=== PATIENT | female | born 1930 | race Caucasian/White ===

== ENCOUNTER 2020-10-22 09:32 | Inpatient (IN) ==
[2020-10-22 10:37] LABS: Hematocrit 34.8 % (37.0-47.0); Hemoglobin 12.6 gm/dL (12.5-16.0); Mean Cell Volume 89.5 fl (78-100); Mean Corpuscular Hemoglobin 32.4 pg (27-31); Mean Corpuscular Hgb Conc 36.2 g/dl (32-36); Mean Platelet Volume 9.9 fl (8-12.5); Neutrophil # 5.4 K/mm3 (1.3-6.0); Neutrophil % 68.5 % (42-75.0); Platelet Count 213 K/mm3 (150-450); Red Blood Count 3.89 M/mm3 (4.2-5.4); Red Cell Distribution Width 11.9 % (11.5-14.0); White Blood Count 7.8 K/mm3 (4.0-10.5)
[2020-10-22 10:41] LABS: Urine Bilirubin Negative (NEGATIVE); Urine Blood Negative /ul (NEGATIVE); Urine Ketone Negative (NEGATIVE); Urine Nitrite Negative (NEGATIVE); Urine Protein Negative (NEGATIVE); Urine Specific Gravity <=1.005 SP.GR. (1.005-1.010); Urine Urobilinogen Normal (NORMAL); Urine pH 6.5 pH (5.0-7.0)
[2020-10-22 10:50] LABS: Urine Appearance Slightly Cloudy (CLEAR); Urine Color Yellow
[2020-10-22 10:51] LABS: Urine Amorphous Sediment Few - 1+ (NONE-FEW); Urine Bacteria 2+; Urine RBC None Seen /hpf (0-5); Urine WBC 0-5 /hpf (0-5)
[2020-10-22] MEDS ORDERED: NORMAL SALINE 1,000 ML IV PRN (10:55)
[2020-10-22 10:56] LABS: ALT 19 U/L (19-67); AST 14 U/L (0-48); Albumin * 3.5 gm/dl (3.4-5.0); Alkaline Phosphatase * 72 U/L (50-170); Anion Gap 13.4 mmol/L (6.8-13.8); BUN/Creatinine Ratio 20.4 (9.0-21.6); Bilirubin, Total 1.4 mg/dL (0.0-1.1); Blood Urea Nitrogen 29 mg/dL (3-23); Ca. Corrected For Albumin 10.2 mg/dL (8.4-10.2); Calcium * 10.1 mg/dL (7.9-10.9); Chloride 84 mmol/L (97-106); Glucose * 106 mg/dL (70-110); Potassium 4.4 mmol/L (3.4-4.6); Troponin I Less than 0.017 ng/mL (0.00-0.10)
[2020-10-22 10:57] LABS: Sodium 118 mmol/L (132-142)
--- NOTE | 2020-10-22 11:04 | ERNOTE ---
Neuro HPI ER Record Date of Service: 10/22/20 Presenting Symptoms: weakness Time Seen by Provider: 10/22/20 10:18 Source: patient Exam Limitations: no limitations Immunizations: IMMUNIZATION HX Immunizations Up to Date No History of Influenza Vaccine Yes Hx Pneumococcal Vaccination More Information Required Allergies/Adverse Reactions: Allergies Allergy/AdvReac Type Severity Reaction Status Date / Time No Known Allergies Allergy Unverified 10/22/20 09:44 Home Medications: HOME MEDICATIONS Aspirin 81 mg PO DAILY 10/22/20 [Last Taken Unknown] Atenolol [Tenormin] 25 mg PO DAILY 10/22/20 [Last Taken Unknown] Bumetanide 2 mg PO DAILY 10/22/20 [Last Taken Unknown] Clopidogrel Bisulfate [Plavix] 75 mg PO DAILY 10/22/20 [Last Taken Unknown] Isosorbide Mononitrate [Imdur] 30 mg PO DAILY 10/22/20 [Last Taken Unknown] Levothyroxine Sodium [Levo-T] 25 mcg PO DAILY 10/22/20 [Last Taken Unknown] Nitroglycerin 0.4 mg SL prn 10/22/20 [Last Taken Unknown] Telmisartan [Micardis] 40 mg PO DAILY 10/22/20 [Last Taken Unknown] - History of Present Illness Narrative: 89-year-old white female who has had altered mental status for the last few days. No fevers or chills or any other constitutional signs or symptoms overall patient has been moving and walking but doing little things like dressing appropriately for getting home her daughter was etc. Onset: gradual onset Severity: moderate - Character of Deficits Additional Deficits: Present: impaired speech, decrease ability to stand, decrease ability to walk, weakness Baseline Cognition: Present: alert but disoriented to time, alert but confused Baseline Gait: Present: uses a cane/walker Associated Symptoms: Reports: altered mental status, disoriented, confused Review of Systems - Review of Systems Constitutional: Present: no symptoms reported EYE: Present: no symptoms reported ENT: Present: no symptoms reported Respiratory: Present: no symptoms reported Cardiology: Present: no symptoms reported Gastrointestinal/Abdominal: Present: no symptoms reported Genitourinary: Present: no symptoms reported Musculoskeletal: Present: no symptoms reported Skin: Present: no symptoms reported Neurological: Present: no symptoms reported Endocrine: Present: no symptoms reported Hematologic/Lymphatic: Present: no symptoms reported Psych: Present: no symptoms reported Medical History (Last Reviewed 10/22/20 @ 11:08 by Agapito Johnson DO) Afib HTN (hypertension) Hypothyroidism Surgical History: Surgical History (Last Reviewed 10/22/20 @ 11:08 by Agapito Johnson DO) H/O: hysterectomy Family History: Family History (Last Reviewed 10/22/20 @ 11:08 by Agapito Johnson DO) Other No pertinent family history Social History: (Last Reviewed 10/22/20 @ 11:08 by Agapito Johnson DO) Tobacco: Smoking Status: Never smoker Alcohol: alcohol intake: never Substance Use: substance use type: does not use Physical Exam - Physical Exam General Appearance: Present: no apparent distress Head Exam: Present: normal inspection Eye Exam: Normal inspection: bilateral, PERRL: bilateral, EOMI: bilateral Ears, Nose, Throat: Present: normal ENT inspection Neck: Present: normal inspection Respiratory: Present: no respiratory distress Cardiovascular/Chest: Present: regular rate, rhythm Gastrointestinal/Abdominal: Present: normal bowel sounds Back Exam: Present: normal inspection Extremity Exam: Present: normal inspection Neurological Exam: Present: alert Skin Exam: Present: normal color Progress - Results and Orders Patient's Lab Results:: I have reviewed the patient's lab results. - Vital Signs Patient's Vital Signs:: I have reviewed the patient's vital signs. Vital Signs: Vital Signs 10/22/20 09:32 Temperature 35.6 C L Pulse Rate 52 L Respiratory Rate 16 Blood Pressure 167/57 H O2 Sat by Pulse Oximetry 99 - EKG EKG #1 EKG: atrial fibrillation - X-Ray X-Ray #1 X-Ray: cm - CT/Ultrasound CT/Ultrasound Narrative: no acute changes - Progress/Reassessment Chief Complaint: Altered Mental Status Progress:: Improved Departure Clinical Impression: Hyponatremia syndrome - Departure Disposition: Still a patient Condition: Good
[2020-10-22] MEDS ORDERED: NITROGLYCERIN 0.4 MG/TAB BTL SL SCH (12:45)
[2020-10-22] MEDS ORDERED: NORMAL SALINE 1,000 ML IV ONE (19:29)
--- NOTE | 2020-10-22 19:35 | HP ---
Chief Complaint - Chief Complaint Date of Service: 10/22/20 Time of Service: 19:35 Chief Complaint: ams History of Present Illness: 89-year-old female with history of hypothyroidism, high blood pressure, and A. fib currently rate controlled with atenolol (slightly bradycardic) and on aspirin and Plavix was admitted to the hospital due to 1 week of worsening mentation. Daughter states that for the last couple of weeks patient has slowly been becoming more confused until recently where she will was only responding to questions with I do not know. When she is brought into the ER she was found to be hyponatremic at 118 but otherwise the rest of her lab work was fairly unremarkable. Her urine is negative for infection and she was Covid negative. No drug use. Head CT scan showed age-related changes but no acute intracranial pathology. She is admitted due to her hyponatremia and altered mental status. He said to be confused she had no other concerns and daughter had no other concerns. When examined, patient had received 1 L of normal saline. According to her daughter it is really improved her mentation. Daughter states that she has not had any salt on her food in the last couple of months and she is also on Bumex. She states that Bumex for blood pressure control but has no history of congestive heart failure. Her BNP was elevated at 4728 as she does not appear to be fluid overloaded and her chest x-ray did not show vascular congestion. She she was borderline, with cardiomegaly. Otherwise normal chest x-ray. She denies shortness of breath, cough, swelling her legs. Medical History (Last Reviewed 10/22/20 @ 11:08 by Agapito Johnson DO) Afib HTN (hypertension) Hypothyroidism Surgical History: Surgical History (Last Reviewed 10/22/20 @ 11:08 by Agapito Johnson DO) H/O: hysterectomy Family History: Family History (Last Reviewed 10/22/20 @ 11:08 by Agapito Johnson DO) Other No pertinent family history Social History: (Last Reviewed 10/22/20 @ 11:08 by Agapito Johnson DO) Tobacco: Smoking Status: Never smoker Alcohol: alcohol intake: never Substance Use: substance use type: does not use Review Of Systems (GEN) - Review of Systems Generalized/Overall Review: Absent: Weakness - Did feel slightly unsteady on her legs, Chills, Fever EENTM: Present: No Symptoms Reported Respiratory: Present: No Symptoms Reported Abdominal: Present: No Symptoms Reported Genitourinary: Present: No Symptoms Reported Musculoskeletal: Present: No Symptoms Reported Neurological: Present: Other - Confused Skin: Present: No Symptoms Reported Endocrine: Present: No Symptoms Reported Immunizations: IMMUNIZATION HX Immunizations Up to Date No History of Influenza Vaccine Yes Hx Pneumococcal Vaccination More Information Required Allergies/Adverse Reactions: Allergies Allergy/AdvReac Type Severity Reaction Status Date / Time No Known Allergies Allergy Unverified 10/22/20 09:44 Home Medications: HOME MEDICATIONS Aspirin 81 mg PO DAILY 10/22/20 [Last Taken Unknown] Atenolol [Tenormin] 25 mg PO DAILY 10/22/20 [Last Taken Unknown] Bumetanide 2 mg PO DAILY 10/22/20 [Last Taken Unknown] Clopidogrel Bisulfate [Plavix] 75 mg PO DAILY 10/22/20 [Last Taken Unknown] Isosorbide Mononitrate [Imdur] 30 mg PO DAILY 10/22/20 [Last Taken Unknown] Levothyroxine Sodium [Levo-T] 25 mcg PO DAILY 10/22/20 [Last Taken Unknown] Nitroglycerin 0.4 mg SL prn 10/22/20 [Last Taken Unknown] Telmisartan [Micardis] 40 mg PO DAILY 10/22/20 [Last Taken Unknown] Exam - Exam Vital Signs: Vital Signs - Last Taken Temp 36.6 C 10/22/20 18:02 Pulse 52 L 10/22/20 18:02 Resp 24 H 10/22/20 18:02 BP 145/62 10/22/20 18:02 Pulse Ox 99 10/22/20 18:02 Constitutional: Present: Alert, Oriented x3, Elderly ENT Exam: Present: hearing grossly normal Eye Exam: bilateral eye: normal inspection, EOMI Neck: Present: non-tender, supple Respiratory: Present: lungs clear, normal breath sounds Cardiovascular/Chest: Present: no murmur, irregularly irregular Abdomen: Present: soft, nontender, nondistended Extremity: Present: non-tender. Absent: lower extremity edema Skin Exam: Present: normal color, warm/dry Appearance: Present: appropriate appearance, appropriate insight, neat Eye contact: Present: cooperative, good eye contact Thoughts: Present: normal thought pattern, normal mood /affect Diagnostic Studies: Abnormal Lab Results 10/22/20 10/22/20 10/22/20 Range/Units 10:00 10:30 10:30 RBC 3.89 L (4.2-5.4) M/mm3 Hct 34.8 L (37.0-47.0) % MCH 32.4 H (27-31) pg MCHC 36.2 H (32-36) g/dl Immature Gran % (Auto) 0.50 H (0.001-0.429) % Immature Gran # (Auto) 0.04 H (0.000-0.0310) K/mm3 Monocytes % 10.3 H (0.0-9) % Sodium 118 L* (132-142) mmol/L Plasma Sodium 118 L* (130-142) mmol/L Chloride 84 L (97-106) mmol/L BUN 29 H (3-23) mg/dL Creatinine 1.42 H (0.4-1.4) mg/dL Est GFR (Non-Af Amer) 37 L (60-130) mL/min Total Bilirubin 1.4 H (0.0-1.1) mg/dL B-Natriuretic Peptide (5-550) pg/mL Urine Bacteria 2+ H (NONE) 10/22/20 Range/Units 10:30 RBC (4.2-5.4) M/mm3 Hct (37.0-47.0) % MCH (27-31) pg MCHC (32-36) g/dl Immature Gran % (Auto) (0.001-0.429) % Immature Gran # (Auto) (0.000-0.0310) K/mm3 Monocytes % (0.0-9) % Sodium (132-142) mmol/L Plasma Sodium (130-142) mmol/L Chloride (97-106) mmol/L BUN (3-23) mg/dL Creatinine (0.4-1.4) mg/dL Est GFR (Non-Af Amer) (60-130) mL/min Total Bilirubin (0.0-1.1) mg/dL B-Natriuretic Peptide 4728 H (5-550) pg/mL Urine Bacteria (NONE) Laboratory Results WBC 7.8 K/mm3 (4.0-10.5) 10/22/20 10:30 RBC 3.89 M/mm3 (4.2-5.4) L 03/12/21 10:30 Hgb 12.6 gm/dL (12.5-16.0) 10/22/20 10:30 Hct 34.8 % (37.0-47.0) L 10/22/20 10:30 MCV 89.5 fl (78-100) 10/22/20 10:30 MCH 32.4 pg (27-31) H 10/22/20 10:30 MCHC 36.2 g/dl (32-36) H 10/22/20 10:30 RDW 11.9 % (11.5-14.0) 10/22/20 10:30 Plt Count 213 K/mm3 (150-450) 10/22/20 10:30 MPV 9.9 fl (8-12.5) 10/22/20 10:30 Immature Gran % (Auto) 0.50 % (0.001-0.429) H 10/22/20 10:30 Immature Gran # (Auto) 0.04 K/mm3 (0.000-0.0310) H 10/22/20 10:30 Neutrophils % 68.5 % (42-75.0) 10/22/20 10:30 Lymphocytes % 20.1 % (20-51) 10/22/20 10:30 Monocytes % 10.3 % (0.0-9) H 10/22/20 10:30 Eosinophils % 0.3 % (0.0-3.0) 10/22/20 10:30 Basophils % 0.3 % (0.0-1.0) 10/22/20 10:30 Nucleated RBC % 0.0 k/mm3 (0-1) 10/22/20 10:30 Neutrophils # 5.4 K/mm3 (1.3-6.0) 10/22/20 10:30 Lymphocytes # 1.57 k/mm3 (1.5-3.5) 10/22/20 10:30 Monocytes # 0.8 k/mm3 (0.0-1.0) 10/22/20 10:30 Eosinophils # 0.0 k/mm3 (0.0-0.7) 10/22/20 10:30 Absolute Basophils 0.0 k/mm3 (0.0-0.1) 10/22/20 10:30 Sodium 118 mmol/L (132-142) L* 10/22/20 10:30 Plasma Sodium 118 mmol/L (130-142) L* 10/22/20 10:30 Potassium 4.4 mmol/L (3.4-4.6) 10/22/20 10:30 Chloride 84 mmol/L (97-106) L 10/22/20 10:30 Carbon Dioxide 25.0 mmol/L (24-32.6) 10/22/20 10:30 Anion Gap 13.4 mmol/L (6.8-13.8) 10/22/20 10:30 BUN 29 mg/dL (3-23) H 10/22/20 10:30 Creatinine 1.42 mg/dL (0.4-1.4) H 10/22/20 10:30 Est GFR (Non-Af Amer) 37 mL/min (60-130) L 10/22/20 10:30 BUN/Creatinine Ratio 20.4 (9.0-21.6) 10/22/20 10:30 Random Glucose 106 mg/dL (70-110) 10/22/20 10:30 Calcium 10.1 mg/dL (7.9-10.9) 10/22/20 10:30 Calcium Adj for Albumin 10.2 mg/dL (8.4-10.2) 10/22/20 10:30 Total Bilirubin 1.4 mg/dL (0.0-1.1) H 10/22/20 10:30 AST 14 U/L (0-48) 10/22/20 10:30 ALT 19 U/L (19-67) 10/22/20 10:30 Alkaline Phosphatase 72 U/L (50-170) 10/22/20 10:30 Troponin I Less than 0.017 ng/mL (0.00-0.10) 10/22/20 10:30 B-Natriuretic Peptide 4728 pg/mL (5-550) H 10/22/20 10:30 Total Protein 7.0 gm/dL (6.2-8.2) 10/22/20 10:30 Albumin 3.5 gm/dl (3.4-5.0) 10/22/20 10:30 Urine Color Yellow 10/22/20 10:00 Urine Appearance Slightly cloudy (CLEAR) 10/22/20 10:00 Urine pH 6.5 pH (5.0-7.0) 10/22/20 10:00 Ur Specific [place] <=1.005 SP.GR. (1.005-1.010) 10/22/20 10:00 Urine Protein Negative mg/dL (NEGATIVE) 10/22/20 10:00 Urine Glucose (UA) Negative mg/dL (NEGATIVE) 10/22/20 10:00 Urine Ketones Negative mg/dL (NEGATIVE) 10/22/20 10:00 Urine Blood Negative /ul (NEGATIVE) 10/22/20 10:00 Urine Nitrate Negative (NEGATIVE) 10/22/20 10:00 Urine Bilirubin Negative mg/dl (NEGATIVE) 10/22/20 10:00 Urine Urobilinogen Normal EU/dl (NORMAL) 10/22/20 10:00 Ur Leukocyte Esterase Negative /ul (NEGATIVE) 10/22/20 10:00 Urine RBC None seen /hpf (0-5) 10/22/20 10:00 Urine WBC 0-5 /hpf (0-5) 10/22/20 10:00 Ur Epithelial Cells 0-5 /hpf (0-5) 10/22/20 10:00 Amorphous Sediment Few - 1+ (NONE-FEW) 10/22/20 10:00 Urine Bacteria 2+ (NONE) H 10/22/20 10:00 Urine Culture Comments No culture indicated 10/22/20 10:00 Ethyl Alcohol Less than 3.0 mg/dL (0.0-10.0) 10/22/20 10:30 SARS-CoV-2 (PCR) Not detected (NotDetected) 10/22/20 10:57 Assessment/Plan - Narrative Narrative: Patient admitted as inpatient due to hyponatremia syndrome for sodium of 118. She did receive 1 bag of normal saline in the ER that was bolused. Repeat lites this evening. We will also repeat electrolytes in the morning tomorrow. We will continue normal saline at 75 mL/h x 1 L. We will slowly correct her sodium though this appears to more an acute issue so correcting it a little quicker should not be an issue. Patient looks much better this evening according to her daughter and is alert and oriented and close to her baseline mentation carter. She feels a little bit slow with her thought process but otherwise is talking well and answering questions appropriately. Daughter states that she is much better than she is in weeks. We will hold her Bumex for the time being and likely adjust her other blood pressure medications as needed to get better control. She is only on this for some lower extremity swelling that happens in her legs at times (not swollen today)) blood pressure. I think you better job control her blood pressure with other medicines which I think we have much better for her overall health you as hyponatremia can be very dangerous and cause significant cognitive deficits as we have seen with her. Restarted her other home medications except for atenolol which we will hold at this time due to her bradycardia. She is on aspirin and clopidogrel for DVT prevention secondary to her A. fib which I think is all she will need at this point. She is 89 years old and I think the risk of being bradycardic and having hypotension and orthostatic responses due to this is worse than her having a elevated heart rate though we will address this if her heart rate is outside the normal limits. We will also add hydralazine IV to be given as needed until we know how her blood pressure will respond to having the Bumex stopped as well as been off the atenolol. 10 mg every 4 hours as needed for systolic pressure greater than 160. Restarted her on a regular diet. SCDs for DVT prophylaxis ordered. Nurse to call questions or concerns. Will repeat BMP in the morning to monitor sodium. Overall the patient appears to be doing well likely she will be here for a day or 2 depending on how she corrects. We will also monitor her fluid status and make sure that she is not becoming fluid overloaded though her daughter states that she has no history of CHF and has never been treated for this. Her kidney function is appropriate. - Assessment/Plan (1) Hypertension Problem: Acute (2) A-fib Problem: Acute (3) Hypothyroidism Problem: Acute (4) Hyponatremia syndrome Problem: Acute (5) Elevated brain natriuretic peptide (BNP) level Problem: Acute
[2020-10-22 19:54] LABS: Anion Gap 11.4 mmol/L (6.8-13.8); Carbon Dioxide 27.4 mmol/L (24-32.6); Potassium 4.8 mmol/L (3.4-4.6)
[2020-10-23] MEDS: LEVOTHYROXINE SODIUM 25 MCG TABLET PO SCH (07:39)
[2020-10-23 07:52] LABS: Anion Gap 11.8 mmol/L (6.8-13.8); Calcium * 9.7 mg/dL (7.9-10.9); Carbon Dioxide 25.6 mmol/L (24-32.6); Estimated Creat Clear 24.4; Potassium 4.4 mmol/L (3.4-4.6)
[2020-10-23] MEDS ORDERED: hydrALAZINE HCL 20 MG/ML VIAL IV PRN (07:57)
[2020-10-23] MEDS: LOSARTAN POTASSIUM 50 MG TABLET PO SCH (08:12)
[2020-10-23] MEDS: ASPIRIN 81 MG TAB.CHEW PO SCH (08:13)
[2020-10-23] MEDS: ISOSORBIDE MONONITRATE 30 MG TAB.SR.24H PO SCH (08:13)
[2020-10-23] MEDS: CLOPIDOGREL BISULFATE 75 MG TABLET PO SCH (08:13)
[2020-10-23] MEDS ORDERED: NITROGLYCERIN 0.4 MG/TAB BTL SL PRN (08:28)
[2020-10-23] MEDS ORDERED: ATENOLOL 25 MG TABLET PO SCH (09:00)
[2020-10-23] MEDS ORDERED: LOSARTAN POTASSIUM 50 MG TABLET PO SCH (09:00)
--- NOTE | 2020-10-23 09:49 | PN ---
Subjective - Date and Time Seen Date: 10/23/20 Time: 09:45 Subjective Narrative: Patient is very pleasant this morning, very comfortable. No concerns or acute events overnight. Blood pressure is mildly elevated though. Sodium did increase from 119 which was rechecked last night to 126 morning. Patient's heart rate still low but she was given atenolol yesterday and so it to see how she responds to it having out of her system today. Otherwise she has no concerns and feels well. She denies shortness of breath or cough or confusion. Objective - Review of Systems Generalized/Overall Review: Denies: Weakness - Gait unsteadiness EENTM: Reports: No Symptoms Reported Respiratory: Reports: No Symptoms Reported Cardiac: Reports: No Symptoms Reported Abdominal: Denies: Nausea, Vomiting Genitourinary Symptoms: Reports: No Symptoms Reported Musculoskeletal Complaints: Reports: No Symptoms Reported Neurological: Reports: No Symptoms Reported Skin: Reports: No Symptoms Reported Endocrine: Reports: No Symptoms Reported - Vitals Vitals: Last Vital Signs Temp 36.1 C 10/23/20 06:47 Pulse 50 L 10/23/20 09:00 Resp 18 10/23/20 06:47 BP 152/56 H 10/23/20 09:00 Pulse Ox 100 10/23/20 06:47 - Abnormal Lab Findings Abnormal Lab Findings: Abnormal Lab Results 10/22/20 10/22/20 10/22/20 Range/Units 10:00 10:30 10:30 RBC 3.89 L (4.2-5.4) M/mm3 Hct 34.8 L (37.0-47.0) % MCH 32.4 H (27-31) pg MCHC 36.2 H (32-36) g/dl Immature Gran % (Auto) 0.50 H (0.001-0.429) % Immature Gran # (Auto) 0.04 H (0.000-0.0310) K/mm3 Monocytes % 10.3 H (0.0-9) % Sodium 118 L* (132-142) mmol/L Plasma Sodium 118 L* (130-142) mmol/L Potassium (3.4-4.6) mmol/L Chloride 84 L (97-106) mmol/L BUN 29 H (3-23) mg/dL Creatinine 1.42 H (0.4-1.4) mg/dL Est GFR (Non-Af Amer) 37 L (60-130) mL/min Total Bilirubin 1.4 H (0.0-1.1) mg/dL B-Natriuretic Peptide (5-550) pg/mL Urine Bacteria 2+ H (NONE) 10/22/20 10/22/20 10/23/20 Range/Units 10:30 19:43 07:28 RBC (4.2-5.4) M/mm3 Hct (37.0-47.0) % MCH (27-31) pg MCHC (32-36) g/dl Immature Gran % (Auto) (0.001-0.429) % Immature Gran # (Auto) (0.000-0.0310) K/mm3 Monocytes % (0.0-9) % Sodium 119 L 126 L (132-142) mmol/L Plasma Sodium 126 L (130-142) mmol/L Potassium 4.8 H (3.4-4.6) mmol/L Chloride 85 L 93 L (97-106) mmol/L BUN 24 H (3-23) mg/dL Creatinine (0.4-1.4) mg/dL Est GFR (Non-Af Amer) 43 L (60-130) mL/min Total Bilirubin (0.0-1.1) mg/dL B-Natriuretic Peptide 4728 H (5-550) pg/mL Urine Bacteria (NONE) - Exam Constitutional: Present: Alert, Oriented x3, Cooperative, Elderly ENT Exam: Present: hearing grossly normal Respiratory: Present: lungs clear, normal breath sounds Cardiovascular/Chest: Present: no murmur, irregularly irregular Abdomen: Present: soft, nontender, nondistended Extremity: Present: normal range of motion, non-tender, no pedal edema Skin Exam: Present: normal color, warm/dry Neurologic: Present: no motor/sensory deficits, normal mood/affect Appearance: Present: appropriate appearance, appropriate insight Eye contact: Present: cooperative, good eye contact Thoughts: Present: normal thought pattern, normal mood /affect Assessment/Plan Plan Narrative: Significant improvement with the patient from time of admission to now. Sodium is up to 126 from 118. She is being corrected very slowly with normal saline so her body is mostly doing this, likely due to holding the Bumex as well. We will continue to monitor her sodium and likely discharge home tomorrow if there are no acute changes in her cognition or her overall clinical picture. She looks much better and feels much better. Increase her losartan from 50 mg 200 mg today due to her elevated pressures. Diltiazem ordered and to be used for systolics greater than 160. Holding her atenolol due to her low heart rate, hopefully her heart rate increases later today after that medicine is out of her system. Repeat BMP tomorrow. Continue current treatment plan otherwise. We will adjust her hypertension treatment as needed. Continue as needed hydralazine if needed. SCDs for DVT prophylaxis though she is on Plavix and aspirin. Overall though she feels well and has no concerns. Nurse to call with any questions or concerns. - Problems/Diagnosis (1) Hyponatremia syndrome Problem: Acute (2) A-fib Problem: Acute (3) Hypertension Problem: Acute (4) Hypothyroidism Problem: Acute (5) Elevated brain natriuretic peptide (BNP) level Problem: Acute
[2020-10-24] MEDS: LEVOTHYROXINE SODIUM 25 MCG TABLET PO SCH (06:55)
[2020-10-24 07:04] LABS: Anion Gap 13.7 mmol/L (6.8-13.8); BUN/Creatinine Ratio 19.1 (9.0-21.6); Calcium * 9.7 mg/dL (7.9-10.9); Carbon Dioxide 22.7 mmol/L (24-32.6); Estimated Creat Clear 22.6; Potassium 4.4 mmol/L (3.4-4.6)
[2020-10-24] MEDS: ASPIRIN 81 MG TAB.CHEW PO SCH (08:25)
[2020-10-24] MEDS: LOSARTAN POTASSIUM 50 MG TABLET PO SCH (08:25)
[2020-10-24] MEDS: ISOSORBIDE MONONITRATE 30 MG TAB.SR.24H PO SCH (08:26)
[2020-10-24] MEDS: CLOPIDOGREL BISULFATE 75 MG TABLET PO SCH (08:26)
--- NOTE | 2020-10-24 13:22 | DS ---
(1) Hyponatremia syndrome Problem: Acute (2) A-fib Problem: Acute (3) Hypertension Problem: Acute (4) Hypothyroidism Problem: Acute (5) Elevated brain natriuretic peptide (BNP) level Problem: Acute Date of Discharge:: 10/24/20 Hospital Course: 89-year-old female who presented to the hospital for acute delirium that worsened over the last 2 weeks was found to have a sodium of 118 upon admission. Patient was started on normal saline and slowly hydrated. Her diuretic was held and her sodium responded well. Upon discharge is back up to 131 and she was feeling much better. No mentation issues had completely resolved and she is ready be discharged. She had no headache or chest pain. She has no history of congestive heart failure but she did have a mildly elevated BNP here. We will work this up in the outpatient setting as she will need an echocardiogram to evaluate her cardiac function. Her vital signs been stable, though her heart rate was bradycardic on the atenolol. This was held and her heart rate returned to the mid 60s. She will be discharged home with this medication on hold until she can speak with her slurry blender or follow-up with her PCP. But she felt better with her heart rate being up in the 60s and sat down and lower 50s. Also holding her diuretic for the time being. She can follow-up with me in the next week if needed for repeat blood work and I can also start the process of evaluating her heart. She also can follow-up with her PCP in [place] if she wants to do that. She will need repeat electrolyte panel at her next follow-up visit. Holding her atenolol and her diuretic will be the only changes to her medications made at this visit. We will discuss this with her daughter prior to her leaving but this was discussed in detail with the patient who is in agreement with it. She will be discharged home on a heart healthy diet and advised to monitor her fluid status. If she feels she is gaining weight quickly or develop shortness of breath or cough then she will need to take her diuretic as needed. Again this will be discussed prior to her being discharged. Greater than 1 hour time spent with patient and her daughter, working on discharge orders, and completing discharge instructions. Procedures Performed: none Results and Findings: Lab Pending Results 10/22/20 10:00: Urine Color Yellow, Urine Appearance Slightly cloudy, Urine pH 6.5, Ur Specific [place] <=1.005, Urine Protein Negative, Urine Glucose (UA) Negative, Urine Ketones Negative, Urine Blood Negative, Urine Nitrate Negative, Urine Bilirubin Negative, Urine Urobilinogen Normal, Ur Leukocyte Esterase Negative, Urine RBC None seen, Urine WBC 0-5, Ur Epithelial Cells 0-5, Amorphous Sediment Few - 1+, Urine Bacteria 2+ H, Urine Culture Comments No culture indicated 10/22/20 10:30: WBC 7.8, RBC 3.89 L, Hgb 12.6, Hct 34.8 L, MCV 89.5, MCH 32.4 H, MCHC 36.2 H, RDW 11.9, Plt Count 213, MPV 9.9, Immature Gran % (Auto) 0.50 H, Immature Gran # (Auto) 0.04 H, Neutrophils % 68.5, Lymphocytes % 20.1, Monocytes % 10.3 H, Eosinophils % 0.3, Basophils % 0.3, Nucleated RBC % 0.0, Neutrophils # 5.4, Lymphocytes # 1.57, Monocytes # 0.8, Eosinophils # 0.0, Absolute Basophils 0.0 10/22/20 10:30: Sodium 118 L*, Plasma Sodium 118 L*, Potassium 4.4, Chloride 84 L, Carbon Dioxide 25.0, Anion Gap 13.4, BUN 29 H, Creatinine 1.42 H, Est GFR (Non-Af Amer) 37 L, BUN/Creatinine Ratio 20.4, Random Glucose 106, Calcium 10.1, Calcium Adj for Albumin 10.2, Total Bilirubin 1.4 H, AST 14, ALT 19, Alkaline Phosphatase 72, Troponin I Less than 0.017, Total Protein 7.0, Albumin 3.5, Et hyl Alcohol Less than 3.0 10/22/20 10:30: B-Natriuretic Peptide 4728 H 10/22/20 10:57: SARS-CoV-2 (PCR) Not detected 10/22/20 19:43: Sodium 119 L, Potassium 4.8 H, Chloride 85 L, Carbon Dioxide 27.4, Anion Gap 11.4 10/23/20 07:28: Sodium 126 L, Plasma Sodium 126 L, Potassium 4.4, Chloride 93 L, Carbon Dioxide 25.6, Anion Gap 11.8, BUN 24 H, Creatinine 1.26, Est GFR (Non-Af Amer) 43 L, BUN/Creatinine Ratio 19.0, Random Glucose 86, Calcium 9.7 10/24/20 06:23: Sodium 131 L, Plasma Sodium 131, Potassium 4.4, Chloride 99, Carbon Dioxide 22.7 L, Anion Gap 13.7, BUN 26 H, Creatinine 1.36, Est GFR (Non- Af Amer) 39 L, BUN/Creatinine Ratio 19.1, Random Glucose 84, Calcium 9.7 Discharge Location: Home Disposition: Home self-care Condition: Good Discharge Activity: Activity as tolerated Discharge Diet: Low salt - Monitor fluid intake, keep it around 2000 cc free fluid per day Referrals: Shay Pardo DO [Staff Physician] - One Week Additional Patient Instructions (free text): [facility] will call you on Sunday with follow up appointment. Complete Home Medications List: Complete Home Medication List: Aspirin 81 mg PO DAILY 10/22/20 Clopidogrel Bisulfate [Plavix] 75 mg PO DAILY 10/22/20 Isosorbide Mononitrate [Imdur] 30 mg PO DAILY 10/22/20 Levothyroxine Sodium [Levo-T] 25 mcg PO DAILY 10/22/20 Nitroglycerin 0.4 mg SL prn 10/22/20 Telmisartan [Micardis] 40 mg PO DAILY 10/22/20 Forms: Patient Portal Registration
[2020-10-24 14:07] VITALS: BP 154/57
== END 2020-10-24 14:10 | disposition home or self-care (01) | DRG 641 ==
LOC: ER 09:32 → MS 12:05
PROVIDERS: ADMIT Family Medicine; ATTEND Family Medicine
DX: I10 Essential (primary) hypertension; R00.1 Bradycardia, unspecified; E87.1 Hypo-osmolality and hyponatremia; E03.9 Hypothyroidism, unspecified; I48.91 Unspecified atrial fibrillation

== ENCOUNTER 2021-01-08 07:57 | Inpatient (IN) ==
[2021-01-08] MEDS ORDERED: ASPIRIN 81 MG TAB.CHEW PO ONE (08:07)
--- NOTE | 2021-01-08 08:07 | ERNOTE ---
Chest Pain/Cardiac HPI Date of Service: 01/08/21 Chief Complaint: Chest Pain Time Seen by Provider: 01/08/21 08:05 Source: patient Exam Limitations: no limitations Immunizations: IMMUNIZATION HX Immunizations Up to Date Yes History of Influenza Vaccine Yes Hx Pneumococcal Vaccination Yes Allergies/Adverse Reactions: Allergies No Known Allergies Allergy (Verified 12/01/20 13:06) Home Medications: HOME MEDICATIONS Aspirin 325 mg PO DAILY 10/22/20 [Last Taken Unknown] compress.stocking,knee,reg,med See Rx Instructions .ROUTE .MEDSUPPLY #2 ea 11/08/20 [Last Taken Unknown] escitalopram oxalate 10 mg tablet 10 mg PO DAILY #30 tab 11/10/20 [Last Taken Unknown] isosorbide mononitrate 30 mg tablet,extended release 24 hr 30 mg PO DAILY #30 tab 11/10/20 [Last Taken Unknown] levothyroxine 25 mcg tablet 25 mcg PO DAILY #30 tab 11/10/20 [Last Taken Unknown] telmisartan 40 mg tablet 40 mg PO DAILY #30 tab 11/10/20 [Last Taken Unknown] clopidogrel 75 mg tablet 75 mg PO DAILY #30 tab 11/11/20 [Last Taken Unknown] Acetaminophen [Tylenol] 650 mg PO Q6H PRN 11/15/20 [Last Taken Unknown] memantine 14 mg capsule sprinkle,extended release 24hr 7 mg PO DAILY #30 ea 11/25/20 [Last Taken Unknown] furosemide 20 mg tablet 20 mg PO DAILY PRN #90 tab 11/30/20 [Last Taken Unknown] Zinc Gluconate [Zinc] 220 mg PO DAILY 01/08/21 [Last Taken Unknown] Narrative: Pt is having chest pain this morning. No fever chills coughing etc. Date (Duration): 01/08/21 Time (Timing): 08:09 Timing: constant Severity/Quality: mild, pressure Location: substernal Chest Pain Radiation: no radiation Activities at Onset: none Modifying Factors - Worsens: Present: other Nitro Today/Relief: no nitro taken today Aspirin Treatment Today: no aspirin today Associated Symptoms: Present: shortness of breath Prior Chest Pain/Cardiac Workup: Reports: prior chest pain Review of Systems - Review of Systems Constitutional: Present: no symptoms reported EYE: Present: no symptoms reported ENT: Present: no symptoms reported Respiratory: Present: no symptoms reported Cardiology: Present: chest pain Gastrointestinal/Abdominal: Present: no symptoms reported Genitourinary: Present: no symptoms reported Musculoskeletal: Present: no symptoms reported Skin: Present: no symptoms reported Neurological: Present: no symptoms reported Endocrine: Present: no symptoms reported Hematologic/Lymphatic: Present: no symptoms reported Psych: Present: no symptoms reported Medical History (Last Reviewed 01/08/21 @ 08:10 by Agapito Johnson DO) Hyponatremia syndrome (Acute) Hypertension (Acute) A-fib (Acute) Hypothyroidism (Acute) Elevated brain natriuretic peptide (BNP) level (Acute) Dementia (Suspected) Afib HTN (hypertension) Pseudogout involving multiple joints (Inactive) Surgical History: Surgical History (Last Reviewed 01/08/21 @ 08:10 by Agapito Johnson DO) H/O: hysterectomy (Acute) Family History: Family History (Last Reviewed 01/08/21 @ 08:10 by Agapito Johnson DO) Mother Cancer breast Other No pertinent family history Social History: (Last Reviewed 01/08/21 @ 08:10 by Agapito Johnson DO) Social History: Marital status: / current occupational status: retired Highest level of school completed/degree received: high school graduate Service: No Tobacco: Smoking Status: Never smoker Alcohol: alcohol intake: never Substance Use: substance use type: does not use Dietary Habits: caffeine: Yes Type: coffee Physical Exam - Physical Exam General Appearance: Present: no apparent distress Head Exam: Present: normal inspection, no evidence of injury Eye Exam: Normal inspection: bilateral, PERRL: bilateral, EOMI: bilateral Ears, Nose, Throat: Present: normal ENT inspection Neck: Present: normal inspection, nontender Respiratory: Present: no respiratory distress, normal breath sounds Cardiovascular/Chest: Present: regular rate, rhythm, no murmur, normal peripheral pulses Gastrointestinal/Abdominal: Present: normal bowel sounds Back Exam: Present: normal inspection, normal range of motion Extremity Exam: Present: normal inspection Neurological Exam: Present: alert, oriented, normal mood/affect Skin Exam: Present: normal color, warm/dry Lymphatic Exam: Present: no adenopathy Departure Clinical Impression: A-fib, Acute CHF (congestive heart failure) - Departure Disposition: Short Term Hospital Inpatient Condition: Good Referrals: Shay Pardo DO [Primary Care Provider] -
[2021-01-08] MEDS ORDERED: LORazepam 2 MG/ML DISP.SYRIN IV ONE (08:12)
[2021-01-08] MEDS ORDERED: FUROSEMIDE 10 MG/ML VIAL IV ONE (08:21)
[2021-01-08] MEDS ORDERED: ALBUTEROL SULFATE 2.5 MG/3 ML VIAL.NEB IH ONE ×2 (08:22→08:34)
[2021-01-08] MEDS ORDERED: DILTIAZEM HCL 5 MG/ML VIAL IV ONE (08:22)
[2021-01-08 08:23] LABS: Hematocrit 37.9 % (37.0-47.0); Mean Cell Volume 95.5 fl (78-100); Mean Corpuscular Hemoglobin 30.2 pg (27-31); Mean Corpuscular Hgb Conc 31.7 g/dl (32-36); Mean Platelet Volume 9.4 fl (8-12.5); Platelet Count 338 K/mm3 (150-450); Red Blood Count 3.97 M/mm3 (4.2-5.4); Red Cell Distribution Width 14.6 % (11.5-14.0); White Blood Count 14.8 K/mm3 (4.0-10.5)
[2021-01-08 08:33] LABS: INR 1.01 INR (0.92-1.08); Prothrombin Time (Patient) 10.5 Seconds (9.1-10.7)
[2021-01-08 08:40] LABS: Troponin I Less than 0.017 ng/mL (0.00-0.10)
[2021-01-08 08:42] LABS: ALT 20 U/L (19-67); AST 18 U/L (0-48); Albumin * 2.8 gm/dl (3.4-5.0); Alkaline Phosphatase * 109 U/L (50-170); Anion Gap 16.3 mmol/L (6.8-13.8); BNP * 9064 pg/mL (5-550); BUN/Creatinine Ratio 18.7 (9.0-21.6); Bilirubin, Total 1.1 mg/dL (0.0-1.1); Blood Urea Nitrogen 26 mg/dL (3-23); Calcium * 9.4 mg/dL (7.9-10.9); Carbon Dioxide 25.7 mmol/L (24-32.6); Chloride 98 mmol/L (97-106); Glucose * 161 mg/dL (70-110); Sodium 136 mmol/L (132-142)
[2021-01-08 08:50] LABS: Total Cells Counted 100
[2021-01-08 09:02] LABS: Lymphocyte 10 % (20-51); Monocyte 7 % (0-9); Neutrophil 83 % (42-75); Neutrophil # 12.3 K/mm3 (1.3-6.0); Platelet Estimate Normal (NORMAL); RBC Morphology Normal (NORMAL)
[2021-01-08 12:32] LABS: Urine Appearance Clear (CLEAR); Urine Bilirubin Negative (NEGATIVE); Urine Blood 5 /ul (NEGATIVE); Urine Color Yellow; Urine Ketone Negative (NEGATIVE); Urine Nitrite Negative (NEGATIVE); Urine Protein 15 mg/dL (NEGATIVE); Urine Urobilinogen Normal (NORMAL)
[2021-01-08 12:33] LABS: Urine Bacteria None Seen; Urine Hyaline Cast 0-5 /LPF; Urine RBC 0-5 /hpf (0-5); Urine WBC 0-5 /hpf (0-5)
[2021-01-08] MEDS ORDERED: ACETAMINOPHEN 500 MG TABLET PO PRN (15:43)
[2021-01-08] MEDS ORDERED: CLOPIDOGREL BISULFATE 75 MG TABLET PO SCH (15:45)
[2021-01-08] MEDS ORDERED: ALBUTEROL SULFATE/IPRATROPIUM 3 ML NEBU IH PRN (15:54)
[2021-01-08] MEDS: FUROSEMIDE 10 MG/ML VIAL IV SCH (17:49)
--- NOTE | 2021-01-08 19:16 | HP ---
Chief Complaint - Chief Complaint Date of Service: 01/08/21 Time of Service: 19:01 Chief Complaint: I had shortness of breath and swelling for several days History of Present Illness: 89-year-old female with past medical history of atrial fibrillation, CAD, CHF, CKD 3, mild cognitive dysfunction, and hypothyroidism is a resident at the [facility] who was brought in earlier today for dyspnea at rest and on exertion for more than 2 days. Patient has a long history of cardiac issues one being CHF for which she previously took daily doses of furosemide to diurese her, however her daughter explains that the medication was stopped several months ago when the patient was found to have significant electrolyte imbalance thought to be due to to the diuretic. Shortly after that the patient started developing pedal edema and eventually increasing shortness of breath. She had been complaining over the past several days that she could not draw a full breath and has been more tired than usual. This morning staff at the facility called family to let them know that the patient's breathing was worse and she appeared acutely ill so they decided to bring out to the ER for evaluation. Once in the ER the patient was found to have an elevated BNP and was an atrial fibrillation with rapid ventricular response. She was administered Cardizem which achieved rate control which she has maintained until now. She was also treated with IV diuretics for optimal diuresis to treat fluid overload. Ch catheter was inserted for monitoring of her input and output. The patient was also taking Plavix and aspirin but Plavix was discontinued due to a rash so she is currently only on aspirin. Therefore for additional anticoagulation protection during the hospitalization given her A. fib, we will cover the patient with Loveno. Recommendation to discuss long-term anticoagulation with the patient's PCP was made due to her high risk of embolic event such as OH and stroke. Medical History (Last Reviewed 01/08/21 @ 15:50 by Saima Malagon RN) Hyponatremia syndrome (Acute) Hypertension (Acute) A-fib (Acute) Hypothyroidism (Acute) Elevated brain natriuretic peptide (BNP) level (Acute) Dementia (Suspected) Afib HTN (hypertension) Pseudogout involving multiple joints (Inactive) Surgical History: Surgical History (Last Reviewed 01/08/21 @ 15:50 by Saima Malagon RN) H/O: hysterectomy (Acute) Family History: Family History (Last Reviewed 01/08/21 @ 15:50 by Saima Malagon RN) Mother Cancer breast Other No pertinent family history Social History: (Last Reviewed 01/08/21 @ 15:51 by Saima Malagon RN) Social History: snf: Yes snf comment: [place] Marital status: / lives independently: No current occupational status: retired Highest level of school completed/degree received: high school graduate Service: No Tobacco: Smoking Status: Never smoker Alcohol: alcohol intake: never Substance Use: substance use type: does not use Dietary Habits: caffeine: Yes Type: coffee Peds Patient Hx - Developmental: No Pertinent Hx Peds Patient Hx - Medical: No Pertinent Hx Peds Patient Hx - Cardiac/Respiratory: No Pertinent Hx Peds Patient Hx - Surgical: No Surgical History Patient History - Cancer: No Hx of Cancer Review Of Systems (GEN) - Review of Systems Generalized/Overall Review: Present: No Symptoms Reported EENTM: Present: No Symptoms Reported Respiratory: Present: Shortness of Breath Cardiac: Present: Edema - Bilateral pedal edema Abdominal: Present: No Symptoms Reported Genitourinary: Present: No Symptoms Reported Musculoskeletal: Present: No Symptoms Reported Neurological: Present: No Symptoms Reported Skin: Present: No Symptoms Reported Endocrine: Present: No Symptoms Reported Immunizations: IMMUNIZATION HX Immunizations Up to Date Yes History of Influenza Vaccine Yes Hx Pneumococcal Vaccination Yes Allergies/Adverse Reactions: Allergies Allergy/AdvReac Type Severity Reaction Status Date / Time No Known Allergies Allergy Verified 01/08/21 15:51 Home Medications: HOME MEDICATIONS Aspirin 325 mg PO DAILY 10/22/20 [Last Taken Unknown] compress.stocking,knee,reg,med See Rx Instructions .ROUTE .MEDSUPPLY #2 ea 11/08/20 [Last Taken Unknown] escitalopram oxalate 10 mg tablet 10 mg PO DAILY #30 tab 11/10/20 [Last Taken Unknown] isosorbide mononitrate 30 mg tablet,extended release 24 hr 30 mg PO DAILY #30 tab 11/10/20 [Last Taken Unknown] telmisartan 40 mg tablet 40 mg PO DAILY #30 tab 11/10/20 [Last Taken Unknown] Acetaminophen [Tylenol] 650 mg PO Q6H PRN 11/15/20 [Last Taken Unknown] furosemide 20 mg tablet 20 mg PO DAILY PRN #90 tab 11/30/20 [Last Taken Unknown] Cholecalciferol [Vitamin D] 1,000 unit PO DAILY 01/08/21 [Last Taken Unknown] Magnesium Citrate 200 mg PO DAILY 01/08/21 [Last Taken Unknown] Memantine HCl [Memantine HCl ER] 14 mg PO HS 01/08/21 [Last Taken Unknown] Nitroglycerin [Nitrostat] 0.4 mg SL Q5MIN PRN 01/08/21 [Last Taken Unknown] [place]-3/Dha/Epa/Fish Oil [Fish Oil 1,000 mg Softgel] 1 ea PO DAILY 01/08/21 [Last Taken Unknown] Zinc Sulfate 220 mg PO DAILY 01/08/21 [Last Taken Unknown] Exam - Exam Vital Signs: Vital Signs - Last Taken Temp 36.4 C 01/08/21 15:54 Pulse 77 01/08/21 17:49 Resp 24 H 01/08/21 15:54 BP 136/60 01/08/21 17:49 Pulse Ox 99 01/08/21 15:54 Constitutional: Present: Alert, Cooperative, Well developed, No distress, Elderly ENT Exam: Present: normal ENT inspection Eye Exam: bilateral eye: normal inspection, PERRL, EOMI Neck: Present: non-tender, full range of motion, supple, normal inspection, trachea midline Back Exam: Present: normal inspection, no CVA tenderness Breasts: Present: Exam deferred, Nontender Respiratory: Present: decreased breath sounds, crackles - Bibasilar crackles Cardiovascular/Chest: Present: no chest tenderness, no gallop, no JVD, no murmur, no rub, irregularly irregular Abdomen: Present: Normal bowel sounds, soft, nontender, nondistended, no rebound tenderness, no hepatospenomegaly, no masses /Rectal: Present: Exam deferred Extremity: Present: non-tender, no calf tenderness, pelvis stable, lower extremity edema, pedal edema - Bilateral pedal edema 2+ Skin Exam: Present: normal color, warm/dry, no cyanosis Lymphatic: Present: no adenopathy Neurologic: Present: airplane mechanic II-XII nml as tested, no motor/sensory deficits, normal mood/affect Appearance: Present: appropriate appearance, appropriate insight, neat Eye contact: Present: cooperative, good eye contact, normal speech Thoughts: Present: normal thought pattern, no apparent hallucination Diagnostic Studies: Abnormal Lab Results 01/08/21 01/08/21 01/08/21 Range/Units 08:17 08:17 08:36 WBC 14.8 H (4.0-10.5) K/mm3 RBC 3.97 L (4.2-5.4) M/mm3 Hgb 12.0 L (12.5-16.0) gm/dL MCHC 31.7 L (32-36) g/dl RDW 14.6 H (11.5-14.0) % Neutrophils % (Manual) 83 H (42-75) % Lymphocytes % (Manual) 10 L (20-51) % Neutrophils # (Manual) 12.3 H (1.3-6.0) K/mm3 pO2 62.6 L (83.0-108.0) mmHg Total CO2 25.1 H (19.0-24.0) mmol/L Base Excess (-2.0-3.0) mmol/L ABG pH (7.35-7.45) ABG O2 Sat (Measured) 91.9 L (94.0-98.0) % Anion Gap 16.3 H (6.8-13.8) mmol/L BUN 26 H (3-23) mg/dL Est GFR (Non-Af Amer) 38 L (60-130) mL/min Random Glucose 161 H (70-110) mg/dL B-Natriuretic Peptide 9064 H (5-550) pg/mL Albumin 2.8 L (3.4-5.0) gm/dl Urine Protein (NEGATIVE) mg/dL Urine Blood (NEGATIVE) /ul Hyaline Casts (NONE) /LPF 01/08/21 01/08/21 Range/Units 11:58 12:26 WBC (4.0-10.5) K/mm3 RBC (4.2-5.4) M/mm3 Hgb (12.5-16.0) gm/dL MCHC (32-36) g/dl RDW (11.5-14.0) % Neutrophils % (Manual) (42-75) % Lymphocytes % (Manual) (20-51) % Neutrophils # (Manual) (1.3-6.0) K/mm3 pO2 22.9 L* (83.0-108.0) mmHg Total CO2 (19.0-24.0) mmol/L Base Excess -3.3 L (-2.0-3.0) mmol/L ABG pH 7.34 L (7.35-7.45) ABG O2 Sat (Measured) 36.9 L (94.0-98.0) % Anion Gap (6.8-13.8) mmol/L BUN (3-23) mg/dL Est GFR (Non-Af Amer) (60-130) mL/min Random Glucose (70-110) mg/dL B-Natriuretic Peptide (5-550) pg/mL Albumin (3.4-5.0) gm/dl Urine Protein 15 H (NEGATIVE) mg/dL Urine Blood 5 H (NEGATIVE) /ul Hyaline Casts 0-5 H (NONE) /LPF Laboratory Results WBC 14.8 K/mm3 (4.0-10.5) H 01/08/21 08:17 RBC 3.97 M/mm3 (4.2-5.4) L 01/08/21 08:17 Hgb 12.0 gm/dL (12.5-16.0) L 01/08/21 08:17 Hct 37.9 % (37.0-47.0) 01/08/21 08:17 MCV 95.5 fl (78-100) 01/08/21 08:17 MCH 30.2 pg (27-31) 01/08/21 08:17 MCHC 31.7 g/dl (32-36) L 01/08/21 08:17 RDW 14.6 % (11.5-14.0) H 01/08/21 08:17 Plt Count 338 K/mm3 (150-450) 01/08/21 08:17 MPV 9.4 fl (8-12.5) 01/08/21 08:17 Neutrophils % (Manual) 83 % (42-75) H 01/08/21 08:17 Lymphocytes % (Manual) 10 % (20-51) L 01/08/21 08:17 Monocytes % (Manual) 7 % (0-9) 01/08/21 08:17 Neutrophils # (Manual) 12.3 K/mm3 (1.3-6.0) H 01/08/21 08:17 Lymphocytes # (Manual) 1.5 k/mm3 (1.5-3.5) 05/29/21 08:17 Monocytes # (Manual) 1.0 k/mm3 (0.0-1.0) 01/08/21 08:17 Platelet Estimate Normal (NORMAL) 01/08/21 08:17 RBC Morphology Normal (NORMAL) 01/08/21 08:17 PT 10.5 Seconds (9.1-10.7) 01/08/21 08:17 INR (Anticoag Therapy) 1.01 INR (0.92-1.08) 01/08/21 08:17 PTT (Thais) 25.0 Seconds (24-32) 01/08/21 08:17 pCO2 41.7 mmHg (32.0-45.0) 01/08/21 12:26 pO2 22.9 mmHg (83.0-108.0) L* 01/08/21 12:26 HCO3 22.2 mmol/L (21.0-28.0) 01/08/21 12:26 Total CO2 23.5 mmol/L (19.0-24.0) 01/08/21 12:26 Base Excess -3.3 mmol/L (-2.0-3.0) L 01/08/21 12:26 ABG pH 7.34 (7.35-7.45) L 01/08/21 12:26 ABG O2 Sat (Measured) 36.9 % (94.0-98.0) L 01/08/21 12:26 Sodium 136 mmol/L (132-142) 01/08/21 08:17 Plasma Sodium 137 mmol/L (130-142) 01/08/21 08:17 Potassium 4.0 mmol/L (3.4-4.6) 01/08/21 08:17 Chloride 98 mmol/L (97-106) 01/08/21 08:17 Carbon Dioxide 25.7 mmol/L (24-32.6) 01/08/21 08:17 Anion Gap 16.3 mmol/L (6.8-13.8) H 01/08/21 08:17 BUN 26 mg/dL (3-23) H 01/08/21 08:17 Creatinine 1.39 mg/dL (0.4-1.4) 01/08/21 08:17 Est GFR (Non-Af Amer) 38 mL/min (60-130) L 01/08/21 08:17 BUN/Creatinine Ratio 18.7 (9.0-21.6) 01/08/21 08:17 Random Glucose 161 mg/dL (70-110) H 01/08/21 08:17 Calcium 9.4 mg/dL (7.9-10.9) 01/08/21 08:17 Calcium Adj for Albumin 10.0 mg/dL (8.4-10.2) 01/08/21 08:17 Total Bilirubin 1.1 mg/dL (0.0-1.1) 01/08/21 08:17 AST 18 U/L (0-48) 01/08/21 08:17 ALT 20 U/L (19-67) 01/08/21 08:17 Alkaline Phosphatase 109 U/L (50-170) 01/08/21 08:17 Troponin I Less than 0.017 ng/mL (0.00-0.10) 01/08/21 08:17 B-Natriuretic Peptide 9064 pg/mL (5-550) H 01/08/21 08:17 Total Protein 7.0 gm/dL (6.2-8.2) 01/08/21 08:17 Albumin 2.8 gm/dl (3.4-5.0) L 01/08/21 08:17 Urine Color Yellow 01/08/21 11:58 Urine Appearance Clear (CLEAR) 01/08/21 11:58 Urine pH 6.0 pH (5.0-7.0) 01/08/21 11:58 Ur Specific [place] 1.020 SP.GR. (1.005-1.010) 01/08/21 11:58 Urine Protein 15 mg/dL (NEGATIVE) H 01/08/21 11:58 Urine Glucose (UA) Negative mg/dL (NEGATIVE) 01/08/21 11:58 Urine Ketones Negative mg/dL (NEGATIVE) 01/08/21 11:58 Urine Blood 5 /ul (NEGATIVE) H 01/08/21 11:58 Urine Nitrate Negative (NEGATIVE) 01/08/21 11:58 Urine Bilirubin Negative mg/dl (NEGATIVE) 01/08/21 11:58 Urine Urobilinogen Normal EU/dl (NORMAL) 01/08/21 11:58 Ur Leukocyte Esterase Negative /ul (NEGATIVE) 01/08/21 11:58 Urine RBC 0-5 /hpf (0-5) 01/08/21 11:58 Urine WBC 0-5 /hpf (0-5) 01/08/21 11:58 Ur Epithelial Cells None seen /hpf (0-5) 01/08/21 11:58 Urine Bacteria None seen (NONE) 01/08/21 11:58 Hyaline Casts 0-5 /LPF (NONE) H 01/08/21 11:58 Urine Culture Comments No culture indicated 01/08/21 11:58 SARS-CoV-2 (PCR) Not detected (NotDetected) 01/08/21 12:00 Assessment/Plan - Narrative Narrative: Patient was evaluated and medical chart was reviewed and decision to admit for observation for diagnosis and treatment of decompensated CHF with fluid overload was made. Patient's labs revealed a mild leukocytosis which most likely is an inflammatory response to her acute illness, there was no fever chills reported on admission so systemic infection is unlikely. A diagnosis of decompensated CHF is more supported by evidence of dyspnea at rest and on exertion and by lateral pedal edema and a brief exacerbation of her atrial fibrillation most likely due to the stress on the heart. RVR has resolved since diuresing the patient and administration of Cardizem, will keep her on a director patient and watch closely. Imaging of the patient's lungs revealed bilateral pleural effusion which would explain her respiratory difficulty however she has maintained adequate oxygen saturation and her respiratory difficulty has improved. We will repeat labs tomorrow morning for reevaluation and follow-up on her progress. - Assessment/Plan (1) Acute CHF (congestive heart failure) Problem: Acute (2) Hypertension Problem: Acute (3) A-fib Problem: Acute Qualifiers: Atrial fibrillation type: persistent (not longstanding) Qualified Code(s): I48.19 - Other persistent atrial fibrillation (4) Hypothyroidism Problem: Acute (5) Elevated brain natriuretic peptide (BNP) level Problem: Acute (6) Dementia Problem: Suspected Qualifiers: (7) Decompensated heart failure Problem: Acute (8) Fluid overload Problem: Acute (9) CKD (chronic kidney disease) stage 3, GFR 30-59 ml/min Problem: Acute (10) Atrial fibrillation with RVR Problem: Chronic (11) Bilateral pleural effusion Problem: Acute
[2021-01-08] MEDS: PANTOPRAZOLE SODIUM 20 MG TABLET.DR PO SCH (20:07)
[2021-01-08] MEDS: MEMANTINE HCL 14 MG PO SCH (20:08)
[2021-01-09] MEDS: FUROSEMIDE 10 MG/ML VIAL IV SCH (04:00)
[2021-01-09 06:24] LABS: Hematocrit 34.9 % (37.0-47.0); Mean Cell Volume 94.8 fl (78-100); Mean Corpuscular Hemoglobin 29.9 pg (27-31); Mean Corpuscular Hgb Conc 31.5 g/dl (32-36); Mean Platelet Volume 9.7 fl (8-12.5); Neutrophil # 8.9 K/mm3 (1.3-6.0); Neutrophil % 73.8 % (42-75.0); Platelet Count 272 K/mm3 (150-450); Red Blood Count 3.68 M/mm3 (4.2-5.4); Red Cell Distribution Width 14.8 % (11.5-14.0); White Blood Count 12.1 K/mm3 (4.0-10.5)
[2021-01-09 06:38] LABS: Albumin * 2.4 gm/dl (3.4-5.0); BUN/Creatinine Ratio 23.3 (9.0-21.6); Bilirubin, Total 0.7 mg/dL (0.0-1.1); Ca. Corrected For Albumin 10.2 mg/dL (8.4-10.2); Calcium * 9.2 mg/dL (7.9-10.9); Carbon Dioxide 28.7 mmol/L (24-32.6); Potassium 3.7 mmol/L (3.4-4.6); Total Protein 6.1 gm/dL (6.2-8.2)
[2021-01-09] MEDS ORDERED: LEVOTHYROXINE SODIUM 25 MCG TABLET PO SCH (07:00)
[2021-01-09] MEDS: PANTOPRAZOLE SODIUM 20 MG TABLET.DR PO SCH ×2 (07:37→20:05)
[2021-01-09] MEDS: ENOXAPARIN SODIUM 30 MG/0.3 ML SYRG SC SCH (07:37)
[2021-01-09] MEDS ORDERED: MEMANTINE HCL 7 MG CAP.SPR.24 PO SCH (09:00)
[2021-01-09] MEDS ORDERED: ZINC GLUCONATE 50 MG PO SCH (09:00)
[2021-01-09] MEDS: LOSARTAN POTASSIUM 50 MG TABLET PO SCH (09:27)
[2021-01-09] MEDS: ESCITALOPRAM OXALATE 10 MG TAB PO SCH (09:27)
[2021-01-09] MEDS: ISOSORBIDE MONONITRATE 30 MG TAB.SR.24H PO SCH (09:27)
[2021-01-09] MEDS: ASPIRIN 325 MG TABLET.DR PO SCH (09:27)
[2021-01-09] MEDS: ZINC SULFATE 220 MG CAPSULE PO SCH (09:27)
[2021-01-09] MEDS ORDERED: FUROSEMIDE 10 MG/ML VIAL IV SCH (10:30)
[2021-01-09] MEDS ORDERED: FUROSEMIDE 10 MG/ML VIAL IV ONE ×2 (10:31→16:30)
--- NOTE | 2021-01-09 10:34 | PN ---
Subjective - Date and Time Seen Date: 01/09/21 Time: 10:28 Subjective Narrative: I am still short of breath, no chest is heavy. Objective Objective Narrative: 89-year-old female admitted for decompensated CHF with fluid overload was evaluated at bedside this morning was found to be afebrile and in no acute distress. The patient has shown only mild improvement since arriving at the hospital, she is still presenting dyspnea on exertion and sometimes at rest. She is still reporting shortness of breath and some difficulty breathing. Given these findings we will keep the patient in the hospital for an additional day for treatment with diuretics for optimal diuresis and management of her blood pressure. She denies any chest pain or dizziness and says her main issue is the breathing. - Review of Systems Generalized/Overall Review: Reports: No Symptoms Reported EENTM: Reports: No Symptoms Reported Respiratory: Reports: Shortness of Breath Cardiac: Reports: Edema Abdominal: Reports: No Symptoms Reported Genitourinary Symptoms: Reports: No Symptoms Reported Musculoskeletal Complaints: Reports: No Symptoms Reported Neurological: Reports: No Symptoms Reported Skin: Reports: No Symptoms Reported Endocrine: Reports: No Symptoms Reported - Vitals Vitals: Last Vital Signs Temp 36.8 C 01/09/21 07:51 Pulse 85 01/09/21 09:27 Resp 16 01/09/21 07:51 BP 181/79 H 01/09/21 09:27 Pulse Ox 97 01/09/21 07:51 - Abnormal Lab Findings Abnormal Lab Findings: Abnormal Lab Results 01/08/21 01/08/21 01/09/21 Range/Units 11:58 12:26 06:16 WBC 12.1 H (4.0-10.5) K/mm3 RBC 3.68 L (4.2-5.4) M/mm3 Hgb 11.0 L (12.5-16.0) gm/dL Hct 34.9 L (37.0-47.0) % MCHC 31.5 L (32-36) g/dl RDW 14.8 H (11.5-14.0) % Immature Gran # (Auto) 0.05 H (0.000-0.0310) K/mm3 Lymphocytes % 12.8 L (20-51) % Monocytes % 12.2 H (0.0-9) % Neutrophils # 8.9 H (1.3-6.0) K/mm3 Monocytes # 1.5 H (0.0-1.0) k/mm3 pO2 22.9 L* (83.0-108.0) mmHg Base Excess -3.3 L (-2.0-3.0) mmol/L ABG pH 7.34 L (7.35-7.45) ABG O2 Sat (Measured) 36.9 L (94.0-98.0) % BUN (3-23) mg/dL Est GFR (Non-Af Amer) (60-130) mL/min BUN/Creatinine Ratio (9.0-21.6) ALT (19-67) U/L Total Protein (6.2-8.2) gm/dL Albumin (3.4-5.0) gm/dl Urine Protein 15 H (NEGATIVE) mg/dL Urine Blood 5 H (NEGATIVE) /ul Hyaline Casts 0-5 H (NONE) /LPF 01/09/21 Range/Units 06:16 WBC (4.0-10.5) K/mm3 RBC (4.2-5.4) M/mm3 Hgb (12.5-16.0) gm/dL Hct (37.0-47.0) % MCHC (32-36) g/dl RDW (11.5-14.0) % Immature Gran # (Auto) (0.000-0.0310) K/mm3 Lymphocytes % (20-51) % Monocytes % (0.0-9) % Neutrophils # (1.3-6.0) K/mm3 Monocytes # (0.0-1.0) k/mm3 pO2 (83.0-108.0) mmHg Base Excess (-2.0-3.0) mmol/L ABG pH (7.35-7.45) ABG O2 Sat (Measured) (94.0-98.0) % BUN 30 H (3-23) mg/dL Est GFR (Non-Af Amer) 41 L (60-130) mL/min BUN/Creatinine Ratio 23.3 H (9.0-21.6) ALT 13 L (19-67) U/L Total Protein 6.1 L (6.2-8.2) gm/dL Albumin 2.4 L (3.4-5.0) gm/dl Urine Protein (NEGATIVE) mg/dL Urine Blood (NEGATIVE) /ul Hyaline Casts (NONE) /LPF - Exam Constitutional: Present: Alert, Oriented x3, Cooperative, Well developed, Well nourished, No distress, Elderly ENT Exam: Present: normal ENT inspection, hearing grossly normal Neck: Present: non-tender, full range of motion, supple, normal inspection, trachea midline Breasts: Present: Exam deferred, Nontender Respiratory: Present: decreased breath sounds, crackles - Bibasilar crackles worse on the right Cardiovascular/Chest: Present: normal peripheral pulses, no chest tenderness, no gallop, no JVD, no murmur, no rub, irregularly irregular Abdomen: Present: Normal bowel sounds, soft, nontender, nondistended, no rebound tenderness, no hepatospenomegaly, no masses /Rectal: Present: Exam deferred Extremity: Present: normal range of motion, non-tender, no calf tenderness, normal capillary refill, pelvis stable, pedal edema - Right 2+ pedal edema Skin Exam: Present: normal color, warm/dry, no cyanosis Lymphatic: Present: no adenopathy Neurologic: Present: alert, normal mood/affect, oriented x 3 Appearance: Present: appropriate appearance, appropriate insight, neat, no memory impairment Eye contact: Present: cooperative, good eye contact, normal speech Thoughts: Present: normal thought pattern, no apparent hallucination Cauti Physician Documentation - Urinary Catheter Management 2-way Urethral Date of Insertion: 01/08/21 Time of Insertion: 11:48 Assessment/Plan Plan Narrative: We will increase the patient's IV diuretics for better diuresis in order to alleviate her dyspnea and pedal edema and keep her for an additional day of intrahospital care. - Problems/Diagnosis (1) Acute CHF (congestive heart failure) Problem: Acute (2) Hypertension Problem: Acute (3) A-fib Problem: Acute Qualifiers: Atrial fibrillation type: persistent (not longstanding) Qualified Code(s): I48.19 - Other persistent atrial fibrillation (4) Hypothyroidism Problem: Acute (5) Elevated brain natriuretic peptide (BNP) level Problem: Acute (6) Dementia Problem: Suspected Qualifiers: (7) Decompensated heart failure Problem: Acute (8) Fluid overload Problem: Acute (9) CKD (chronic kidney disease) stage 3, GFR 30-59 ml/min Problem: Acute (10) Atrial fibrillation with RVR Problem: Chronic (11) Bilateral pleural effusion Problem: Acute (12) HTN (hypertension) Problem: Acute
[2021-01-09] MEDS: METOPROLOL SUCCINATE 25 MG TABLET.SA PO SCH (11:36)
[2021-01-09] MEDS: MEMANTINE HCL 14 MG PO SCH (20:06)
[2021-01-10] MEDS: PANTOPRAZOLE SODIUM 20 MG TABLET.DR PO SCH (06:30)
[2021-01-10] MEDS: ENOXAPARIN SODIUM 30 MG/0.3 ML SYRG SC SCH (06:30)
[2021-01-10] MEDS: LOSARTAN POTASSIUM 50 MG TABLET PO SCH (09:13)
[2021-01-10] MEDS: ASPIRIN 325 MG TABLET.DR PO SCH (09:13)
[2021-01-10] MEDS: ISOSORBIDE MONONITRATE 30 MG TAB.SR.24H PO SCH (09:14)
[2021-01-10] MEDS: METOPROLOL SUCCINATE 25 MG TABLET.SA PO SCH (09:14)
[2021-01-10] MEDS: ESCITALOPRAM OXALATE 10 MG TAB PO SCH (09:14)
[2021-01-10] MEDS: ZINC SULFATE 220 MG CAPSULE PO SCH (09:15)
--- NOTE | 2021-01-10 11:38 | DS ---
(1) Acute CHF (congestive heart failure) Problem: Resolved (2) Hypertension Problem: Chronic (3) A-fib Problem: Chronic Qualifiers: Atrial fibrillation type: persistent (not longstanding) Qualified Code(s): I48.19 - Other persistent atrial fibrillation (4) Hypothyroidism Problem: Chronic (5) Elevated brain natriuretic peptide (BNP) level Problem: Acute (6) Dementia Problem: Suspected Qualifiers: (7) Decompensated heart failure Problem: Resolved (8) Fluid overload Problem: Resolved (9) CKD (chronic kidney disease) stage 3, GFR 30-59 ml/min Problem: Chronic (10) Atrial fibrillation with RVR Problem: Resolved (11) Bilateral pleural effusion Problem: Acute (12) HTN (hypertension) Problem: Chronic Date of Discharge:: 01/10/21 Hospital Course: 89-year-old female admitted for decompensated CHF with fluid overload was evaluated at bedside this morning was found to be afebrile and in no acute distress. Patient has shown significant clinical improvement since yesterday and reports feeling much better today. Her breathing is less labored and she denies any dyspnea at rest or on exertion, her pedal edema has also resolved. Patient was treated with multiple doses of IV diuretics and was diuresed to resolve her fluid overload, she tolerated the treatment without any issues. Initial atrial fibrillation with RVR resolved and she maintained stable vitals throughout the hospitalization. Given these findings decision to discharge patient back to the [facility] with maintenance dose of diuretics with instructions to restrict fluids to 1.5 L daily to avoid recurrence of overload was made. Patient was also instructed to watch her salt intake to avoid fluid retention. She was also instructed to follow-up with her PCP as well as her ca rdiologist in 1 week. Procedures Performed: none Results and Findings: Lab Pending Results 01/08/21 08:17: WBC 14.8 H, RBC 3.97 L, Hgb 12.0 L, Hct 37.9, MCV 95.5, MCH 30.2, MCHC 31.7 L, RDW 14.6 H, Plt Count 338, MPV 9.4, Neutrophils % (Manual) 83 H, Lymphocytes % (Manual) 10 L, Monocytes % (Manual) 7, Neutrophils # (Manual) 12.3 H, Lymphocytes # (Manual) 1.5, Monocytes # (Manual) 1.0, Platelet Estimate Normal, RBC Morphology Normal 01/08/21 08:17: PT 10.5, INR (Anticoag Therapy) 1.01, PTT (Thais) 25.0 01/08/21 08:17: Sodium 136, Plasma Sodium 137, Potassium 4.0, Chloride 98, Carbon Dioxide 25.7, Anion Gap 16.3 H, BUN 26 H, Creatinine 1.39, Est GFR (Non- Af Amer) 38 L, BUN/Creatinine Ratio 18.7, Random Glucose 161 H, Calcium 9.4, Calcium Adj for Albumin 10.0, Total Bilirubin 1.1, AST 18, ALT 20, Alkaline Phosphatase 109, Troponin I Less than 0.017, B-Natriuretic Peptide 9064 H, Total Protein 7.0, Albumin 2.8 L 01/08/21 08:36: pCO2 39.9, pO2 62.6 L, HCO3 23.8, Total CO2 25.1 H, Base Excess -0.9, ABG pH 7.39, ABG O2 Sat (Measured) 91.9 L 01/08/21 11:58: Urine Color Yellow, Urine Appearance Clear, Urine pH 6.0, Ur Specific [place] 1.020, Urine Protein 15 H, Urine Glucose (UA) Negative, Urine Ketones Negative, Urine Blood 5 H, Urine Nitrate Negative, Urine Bilirubin Negative, Urine Urobilinogen Normal, Ur Leukocyte Esterase Negative, Urine RBC 0-5, Urine WBC 0-5, Ur Epithelial Cells None seen, Urine Bacteria None seen, Hyaline Casts 0-5 H, Urine Culture Comments No culture indicated 01/08/21 12:00: SARS-CoV-2 (PCR) Not detected 01/08/21 12:26: pCO2 41.7, pO2 22.9 L*, HCO3 22.2, Total CO2 23.5, Base Excess - 3.3 L, ABG pH 7.34 L, ABG O2 Sat (Measured) 36.9 L 01/09/21 06:16: WBC 12.1 H, RBC 3.68 L, Hgb 11.0 L, Hct 34.9 L, MCV 94.8, MCH 29.9, MCHC 31.5 L, RDW 14.8 H, Plt Count 272, MPV 9.7, Immature Gran % (Auto) 0.40, Immature Gran # (Auto) 0.05 H, Neutrophils % 73.8, Lymphocytes % 12.8 L, Monocytes % 12.2 H, Eosinophils % 0.6, Basophils % 0.2, Nucleated RBC % 0.0, Neutrophils # 8.9 H, Lymphocytes # 1.54, Monocytes # 1.5 H, Eosinophils # 0.1, Absolute Basophils 0.0 01/09/21 06:16: Sodium 139, Plasma Sodium 139, Potassium 3.7, Chloride 103, Carbon Dioxide 28.7, Anion Gap 11.0, BUN 30 H, Creatinine 1.29, Est GFR (Non-Af Amer) 41 L, BUN/Creatinine Ratio 23.3 H, Random Glucose 96 D, Calcium 9.2, Calcium Adj for Albumin 10.2, Total Bilirubin 0.7, AST 16, ALT 13 L, Alkaline Phosphatase 93, Total Protein 6.1 L, Albumin 2.4 L Discharge Location: [facility] Disposition: Home self-care Condition: Good Face to Face Encounter completed per [facility] Guidelines: No Discharge Activity: Activity as tolerated Discharge Diet: Other - Restrict fluids to 1.5 L/day Referrals: Shay Pardo DO [Primary Care Provider] - Prescriptions (Any new or edited meds): Metoprolol Succinate [Toprol Xl] 25 mg PO DAILY #30 tablet.sa Transmission Status: Pending to [facility] Complete Home Medications List: Complete Home Medication List: Aspirin 325 mg PO DAILY 10/22/20 compress.stocking,knee,reg,med See Rx Instructions .ROUTE .MEDSUPPLY #2 ea 11/08/20 escitalopram oxalate 10 mg tablet 10 mg PO DAILY #30 tab 11/10/20 isosorbide mononitrate 30 mg tablet,extended release 24 hr 30 mg PO DAILY #30 tab 11/10/20 telmisartan 40 mg tablet 40 mg PO DAILY #30 tab 11/10/20 Acetaminophen [Tylenol] 650 mg PO Q6H PRN 11/15/20 furosemide 20 mg tablet 20 mg PO DAILY PRN #90 tab 11/30/20 Cholecalciferol [Vitamin D] 1,000 unit PO DAILY 01/08/21 Magnesium Citrate 200 mg PO DAILY 01/08/21 Memantine HCl [Memantine HCl ER] 14 mg PO HS 01/08/21 Nitroglycerin [Nitrostat] 0.4 mg SL Q5MIN PRN 01/08/21 [place]-3/Dha/Epa/Fish Oil [Fish Oil 1,000 mg Softgel] 1 ea PO DAILY 01/08/21 Zinc Sulfate 220 mg PO DAILY 01/08/21 Metoprolol Succinate [Toprol Xl] 25 mg PO DAILY #30 tablet.sa 01/10/21 Forms: Patient Portal Registration
[2021-01-10 15:12] VITALS: BP 152/60
== END 2021-01-10 14:00 | disposition home or self-care (01) | DRG 292 ==
LOC: ER 07:57 → MS 14:25
PROVIDERS: ADMIT Family Medicine; ATTEND Family Medicine
DX: I50.9 Heart failure, unspecified; E03.9 Hypothyroidism, unspecified; I13.0 Hypertensive heart and chronic kidney disease with heart failure and stage 1 through stage 4 chronic kidney disease, or unspecified chronic kidney disease; I25.10 Atherosclerotic heart disease of native coronary artery without angina pectoris; N18.30 Chronic kidney disease, stage 3 unspecified; I48.20 Chronic atrial fibrillation, unspecified

== ENCOUNTER 2021-01-20 09:59 | Observation (INO) ==
--- NOTE | 2021-01-20 11:36 | ERNOTE ---
Neuro HPI ER Record Date of Service: 01/20/21 Presenting Symptoms: other - altered mental status Time Seen by Provider: 01/20/21 10:11 Source: family, EMS Exam Limitations: clinical condition Immunizations: IMMUNIZATION HX Immunizations Up to Date Yes History of Influenza Vaccine No Hx Pneumococcal Vaccination No Allergies/Adverse Reactions: Allergies Allergy/AdvReac Type Severity Reaction Status Date / Time No Known Allergies Allergy Verified 01/20/21 10:09 Home Medications: HOME MEDICATIONS compress.stocking,knee,reg,med See Rx Instructions .ROUTE .MEDSUPPLY #2 ea 11/08/20 [Last Taken Unknown] escitalopram oxalate 10 mg tablet 10 mg PO DAILY #30 tab 11/10/20 [Last Taken Unknown] isosorbide mononitrate 30 mg tablet,extended release 24 hr 30 mg PO DAILY #30 tab 11/10/20 [Last Taken Unknown] telmisartan 40 mg tablet 40 mg PO DAILY #30 tab 11/10/20 [Last Taken Unknown] Acetaminophen [Tylenol] 650 mg PO Q6H PRN 11/15/20 [Last Taken Unknown] Cholecalciferol [Vitamin D] 1,000 unit PO DAILY 01/08/21 [Last Taken Unknown] Magnesium Citrate 200 mg PO DAILY 01/08/21 [Last Taken Unknown] Memantine HCl [Memantine HCl ER] 14 mg PO HS 01/08/21 [Last Taken Unknown] Nitroglycerin [Nitrostat] 0.4 mg SL Q5MIN PRN 01/08/21 [Last Taken Unknown] [place]-3/Dha/Epa/Fish Oil [Fish Oil 1,000 mg Softgel] 1 ea PO DAILY 01/08/21 [Last Taken Unknown] Zinc Sulfate 220 mg PO DAILY 01/08/21 [Last Taken Unknown] Metoprolol Succinate [Toprol Xl] 25 mg PO DAILY #30 tablet.sa 01/10/21 [Last Taken Unknown] furosemide 20 mg tablet 20 mg PO DAILY PRN #90 tab 01/13/21 [Last Taken Unknown] aspirin 325 mg tablet 325 mg PO DAILY #30 tab 01/14/21 [Last Taken Unknown] - History of Present Illness Narrative: No history available from the patient. EMS brought her from the [place]. [place] called EMS because she was not responding this morning. She has her eyes closed and will not respond, not verbalizing. Family including POA is here. They relates that she is a DNR and that she has been very clear to them even in the last few days that she is prepared to pass, told then she didn't want to go to the doctor again. She has been explicit to them that she did not want any further medical intervention. Onset: other - Noted this am Severity: severe - Character of Deficits Additional Deficits: Present: bed-ridden, other - unable ot obtain Associated Symptoms: Reports: other - unable to obtain Prior Treament: Reports: recently seen Review of Systems - Narrative Narrative: Unable to obtain ROS d/t patient condition Medical History (Last Reviewed 01/20/21 @ 11:30 by Fady Cook MD) Hyponatremia syndrome (Acute) Hypertension (Chronic) A-fib (Chronic) Hypothyroidism (Chronic) Elevated brain natriuretic peptide (BNP) level (Acute) Dementia (Suspected) Afib HTN (hypertension) Pseudogout involving multiple joints (Inactive) Surgical History: Surgical History (Last Reviewed 01/20/21 @ 11:30 by Fady Cook MD) H/O: hysterectomy (Acute) Family History: Family History (Last Reviewed 01/20/21 @ 11:30 by Fady Cook MD) Mother Cancer breast Other No pertinent family history Social History: (Last Reviewed 01/20/21 @ 11:30 by Fady Cook MD) Social History: correction: Yes correction comment: [place] Marital status: / lives independently: No current occupational status: retired Highest level of school completed/degree received: high school graduate Service: No Tobacco: Smoking Status: Never smoker Alcohol: alcohol intake: never Substance Use: substance use type: does not use Dietary Habits: caffeine: Yes Type: coffee Physical Exam - Physical Exam General Appearance: Present: other - AMS. Eyes closed, does not respond to verbal stimuli Eye Exam: Normal inspection: bilateral, PERRL: bilateral - 3mm, slugginsh Ears, Nose, Throat: Absent: pharyngeal erythema Neck: Present: normal inspection Respiratory: Present: other - mild tachypnea. No active distress. Diminished bilaterally Gastrointestinal/Abdominal: Present: soft, other - no apparent tenderness Back Exam: Present: other - deferred due to clinical condition Extremity Exam: Present: extremity edema Neurological Exam: Present: other - unresponsive. No movement of extremities Skin Exam: Absent: skin rash Progress - Results and Orders Patient's Lab Results:: I have reviewed the patient's lab results. - Vital Signs Patient's Vital Signs:: I have reviewed the patient's vital signs. Vital Signs: Vital Signs 01/20/21 09:59 01/20/21 11:08 Temperature 36.6 C Pulse Rate 77 70 Respiratory Rate 16 24 H Blood Pressure 186/109 H 176/108 H O2 Sat by Pulse Oximetry 99 99 - Progress/Reassessment Chief Complaint: Altered Mental Status Progress Note-Subjective: 01/20/21 11:33 I discussed with family that I would normally do labs including urine, ABG, CXR and head CT. She is a DNR and family relates that she would not want any of this done. They contemplated the situation and agreed to proceed with her wishes and initiate comfort care. I spoke with Dr Pardo then Dr Shah then case management. Patient will be admitted obs for comfort measures and likely hospice evaluation. Family questions answered. Departure Clinical Impression: Altered mental state, Comfort measures only status - Departure Disposition: Still a patient Condition: Poor
[2021-01-20 11:57] VITALS: BP 180/103
[2021-01-20] MEDS ORDERED: ATROPINE SULFATE 50 DROP BTL SL PRN (12:44)
[2021-01-20] MEDS ORDERED: ALBUTEROL SULFATE 2.5 MG/3 ML VIAL.NEB IH PRN (12:44)
[2021-01-20] MEDS ORDERED: LORazepam 2 MG/ML DISP.SYRIN IV PRN (12:44)
[2021-01-20] MEDS ORDERED: ONDANSETRON HCL/PF 2 MG/ML VIAL IV PRN (12:44)
[2021-01-20] MEDS ORDERED: GLYCERIN/PROPYLENE GLYCOL 150 DROP BTL EACHEYE PRN (12:44)
[2021-01-20] MEDS ORDERED: guaiFENesin 100 MG/5 ML SYRUP PO PRN (12:44)
[2021-01-20] MEDS ORDERED: BISACODYL 10 MG SUPP.RECT RC PRN (12:44)
--- NOTE | 2021-01-20 23:10 | HP ---
Chief Complaint - Chief Complaint Date of Service: 01/20/21 Time of Service: 12:45 Chief Complaint: Unresponsive, comfort cares History of Present Illness: Carina is an 89 yo female with history of congestive heart failure. She has been reporting to family that she is done living and does not want to do any further treatment. She was to follow up with Dr. Pardo today but [facility] She was sent to [facility]. Family would like her to be comfort cares and on hospice. She is currently unresponsive but with spontaneous movement and breathing. She does not open her eyes or follow commands to verbal. Medical History (Last Reviewed 01/20/21 @ 12:50 by Saima Malagon RN) Hyponatremia syndrome (Acute) Hypertension (Chronic) A-fib (Chronic) Hypothyroidism (Chronic) Elevated brain natriuretic peptide (BNP) level (Acute) Dementia (Suspected) Afib HTN (hypertension) Pseudogout involving multiple joints (Inactive) Surgical History: Surgical History (Last Reviewed 01/20/21 @ 12:50 by Saima Malagon RN) H/O: hysterectomy (Acute) Family History: Family History (Last Reviewed 01/20/21 @ 12:50 by Saima Malagon RN) Mother Cancer breast Other No pertinent family history Social History: (Last Reviewed 01/20/21 @ 12:51 by Saima Malagon RN) Social History: jail: Yes jail comment: [place] Marital status: / lives independently: No current occupational status: retired Highest level of school completed/degree received: high school graduate Service: No Tobacco: Smoking Status: Never smoker Alcohol: alcohol intake: never Substance Use: substance use type: does not use Dietary Habits: caffeine: Yes Type: coffee Review Of Systems (GEN) - Review of Systems Additional Comments: Unable due to patient condition. Immunizations: IMMUNIZATION HX Immunizations Up to Date Yes History of Influenza Vaccine No Hx Pneumococcal Vaccination No Allergies/Adverse Reactions: Allergies Allergy/AdvReac Type Severity Reaction Status Date / Time No Known Allergies Allergy Verified 01/20/21 12:51 Home Medications: HOME MEDICATIONS compress.stocking,knee,reg,med See Rx Instructions .ROUTE .MEDSUPPLY #2 ea 11/08/20 [Last Taken Unknown] escitalopram oxalate 10 mg tablet 10 mg PO DAILY #30 tab 11/10/20 [Last Taken Unknown] isosorbide mononitrate 30 mg tablet,extended release 24 hr 30 mg PO DAILY #30 tab 11/10/20 [Last Taken Unknown] telmisartan 40 mg tablet 40 mg PO DAILY #30 tab 11/10/20 [Last Taken Unknown] Acetaminophen [Tylenol] 650 mg PO Q6H PRN 11/15/20 [Last Taken Unknown] Cholecalciferol [Vitamin D] 1,000 unit PO DAILY 01/08/21 [Last Taken Unknown] Magnesium Citrate 200 mg PO DAILY 01/08/21 [Last Taken Unknown] Memantine HCl [Memantine HCl ER] 14 mg PO HS 01/08/21 [Last Taken Unknown] Nitroglycerin [Nitrostat] 0.4 mg SL Q5MIN PRN 01/08/21 [Last Taken Unknown] [place]-3/Dha/Epa/Fish Oil [Fish Oil 1,000 mg Softgel] 1 ea PO DAILY 01/08/21 [Last Taken Unknown] Zinc Sulfate 220 mg PO DAILY 01/08/21 [Last Taken Unknown] Metoprolol Succinate [Toprol Xl] 25 mg PO DAILY #30 tablet.sa 01/10/21 [Last Taken Unknown] furosemide 20 mg tablet 20 mg PO DAILY PRN #90 tab 01/13/21 [Last Taken Unknown] aspirin 325 mg tablet 325 mg PO DAILY #30 tab 01/14/21 [Last Taken Unknown] Exam - Exam Vital Signs: Vital Signs - Last Taken Temp 36.4 C 01/20/21 13:49 Pulse 70 01/20/21 13:49 Resp 22 H 01/20/21 13:49 BP 180/103 H 01/20/21 11:56 Pulse Ox 98 01/20/21 13:49 Constitutional: Present: Obtunded. Absent: Alert, Oriented x3 Respiratory: Present: lungs clear, no respiratory distress Cardiovascular/Chest: Present: regular rate, rhythm, no murmur Abdomen: Present: Normal bowel sounds, soft, nontender Skin Exam: Present: normal color, warm/dry, no cyanosis Diagnostic Studies: Laboratory Results SARS-CoV-2 (PCR) Not detected (NotDetected) 01/20/21 10:44 Assessment/Plan - Narrative Narrative: Will admit to confort cares and consult hospice. Will place on comfort care orders. Depending on condition she may go to nursing facility with hospice vs inpatient hospice, will see how her condition progresses. - Assessment/Plan (1) Need for comfort care Problem: Acute (2) Hospice care Problem: Acute (3) CKD (chronic kidney disease) stage 3, GFR 30-59 ml/min Problem: Chronic (4) CHF (congestive heart failure) Problem: Acute Qualifiers: Heart failure type: unspecified
[2021-01-21] MEDS: MORPHINE SULFATE 10 MG/0.5 ML SYRINGE PO PRN ×2 (03:35→14:06)
--- NOTE | 2021-01-21 12:56 | DS ---
(1) CHF (congestive heart failure) Problem: Chronic Qualifiers: Heart failure type: systolic (2) Need for comfort care Problem: Acute (3) Hospice care Problem: Acute (4) CKD (chronic kidney disease) stage 3, GFR 30-59 ml/min Problem: Chronic Date of Discharge:: 01/21/21 Hospital Course: Carina was admitted for comfort cares and to be set up with hospice. She was given comfort care orders and [facility] will pick her up. She is ok to be discharged to [facility] with [facility]. She has progressively worsening chronic systolic congestive heart failure and she will not survive 6 months. A face to face was completed to set up [facility] today. Procedures Performed: none Results and Findings: Lab Pending Results 01/20/21 10:44: SARS-CoV-2 (PCR) Not detected Discharge Location: [facility] Disposition: Home self-correction Health Agency: [facility] Condition: Poor Face to Face Encounter completed per [facility] Guidelines: Yes Discharge Activity: Activity as tolerated Discharge Diet: General/regular food Referrals: Shay Pardo DO [Primary Care Provider] - Problem Oriented Discharge Instructions to Patient/Family: Hospice Prescriptions (Any new or edited meds): Lorazepam [Lorazepam Intensol] 1 mg PO Q1H #30 oral.conc Transmission Status: Sent to [facility] Morphine Sulfate [Morphine Sulfate Conc. Oral Solution] 5 mg PO Q2H PRN #30 syringe PRN Reason: Severe Pain (Pain Scale 7-10) Transmission Status: Sent to [facility] Complete Home Medications List: Complete Home Medication List: Acetaminophen [Tylenol] 650 mg PO Q6H PRN 11/15/20 Nitroglycerin [Nitrostat] 0.4 mg SL Q5MIN PRN 01/08/21 furosemide 20 mg tablet 20 mg PO DAILY PRN #90 tab 01/13/21 Atropine Sulfate [Isopto Atropine 1%] 2 drp SL Q2H PRN btl 01/21/21 Glycerin/Propylene Glycol [Artificial Tears] 2 drp EACHEYE PRN PRN btl 01/21/21 Lorazepam [Lorazepam Intensol] 1 mg PO Q1H #30 oral.conc 01/21/21 Morphine Sulfate [Morphine Sulfate Conc. Oral Solution] 5 mg PO Q2H PRN #30 syringe 01/21/21
== END 2021-01-21 15:10 | disposition home or self-care (01) ==
LOC: MS 09:59 → ER 09:59 → MS 12:00
PROVIDERS: ADMIT Family Medicine; ATTEND Family Medicine